=== PATIENT | female | born 1995 | race Caucasian/White ===

== ENCOUNTER 2020-06-08 19:55 | Emergency (ER) | payer MEDICAID ==
[~2020-06-08] VITALS: Ht 157.5 cm; Wt 61.1 kg
--- NOTE | 2020-06-08 20:19 | NUR ---
ERP AT BS.
[2020-06-08] MEDS ORDERED: MUPIROCIN OINT 2%, 22GM TP ONE (20:30)
[2020-06-08 20:52] LABS: HCG UR SG 1.025 (1.003-1.030); MICROSCOPIC AUTO
[2020-06-08] MEDS ORDERED: FLUCONAZOLE 100 MG TABLET ONE (21:15)
[2020-06-08] MEDS ORDERED: CEFDINIR 300 MG CAPSULE ONE (21:15)
[2020-06-08 21:28] VITALS: BP 113/66
[2020-06-08] MEDS ORDERED: CEFDINIR 300 MG CAPSULE PO ONE (21:30)
[2020-06-08] MEDS ORDERED: FLUCONAZOLE 100 MG TABLET PO ONE (21:30)
== END 2020-06-08 21:23 | disposition home or self-care (01) ==
LOC: ED 21:00
DX: N10 Acute pyelonephritis (principal); B37.3 Candidiasis of vulva and vagina; M54.5 Low back pain
CPT/HCPCS: 81001; 81025; 87086; 99283; 99285

== ENCOUNTER 2020-08-07 19:09 | Emergency (ER) | payer MEDICAID ==
[~2020-08-07] VITALS: Ht 157.5 cm; Wt 58.2 kg
--- NOTE | 2020-08-07 19:15 | NUR ---
patient ambulated to room with steady gait. redness visualized in back of mouth with c/o sore throat. in NAD. will continue to monitor. call mccullough in reach.
[2020-08-07] MEDS ORDERED: BUPR1FIL3 PO (19:40)
--- NOTE | 2020-08-07 21:05 | NUR ---
discharge instruction reviewed with patient. No further questions other than asking for a work note. in NAD. patient eager to leave hospital. Registration requested patient stay in room so they could finish registration process. patient was asked to wait in room for registration to complete their info and patient waited in door way and left ER. registration was notified again. all personal belongings with patient. steady gait on ambulation to lobby
[2020-08-07 21:25] VITALS: BP 108/65
== END 2020-08-07 21:28 | disposition home or self-care (01) ==
LOC: ED 19:39
DX: B34.9 Viral infection, unspecified (principal); Z20.822 Contact with and (suspected) exposure to COVID-19; M79.10 Myalgia, unspecified site; R50.9 Fever, unspecified; J02.9 Acute pharyngitis, unspecified; R09.81 Nasal congestion
CPT/HCPCS: 71045; 87635; 99284

== ENCOUNTER 2020-09-17 13:06 | Emergency (ER) | payer MEDICAID ==
[~2020-09-17] VITALS: Ht 157.5 cm; Wt 56.7 kg
[~2020-09-17 13:06] MED LIST: BUPR1FIL3 PO
--- NOTE | 2020-09-17 13:23 | NUR ---
CALLED FOR PT. PT NOT IN LOBBY
--- NOTE | 2020-09-17 13:29 | NUR ---
CALLED FOR PT. PT NOT IN LOBBY
[2020-09-17 14:39] LABS: BASOPHILS % (AUTO) 1 % (0-1); EOSINOPHILS % (AUTO) 1 % (1-7); LYMPHOCYTES % (AUTO) 35 % (22-44); MEAN CORPUSCULAR HEMOGLOBIN 28.2 pg (27.0-34.8); MEAN CORPUSCULAR HGB CONC 34.1 g/dL (32.4-35.8); MEAN PLATELET VOLUME 8.5 fL (7.4-10.4); MONOCYTES % (AUTO) 7 % (2-9); NEUTROPHILS % (AUTO) 57 % (42-75); PLATELET COUNT 306 x10^3/uL (130-400); RED BLOOD COUNT 4.84 x10^6/uL (3.82-5.3); RED CELL DISTRIBUTION WIDTH 13.5 % (9.6-15.2)
[2020-09-17 14:41] LABS: MD NO
[2020-09-17 14:46] LABS: MICROSCOPIC INDICATED
[2020-09-17 14:49] LABS: ALANINE AMINOTRANSFERASE 17 U/L (12-78); ALBUMIN 3.9 g/dL (3.4-5.0); ANION GAP 7 mmol/L (5-15); CALCIUM 8.8 mg/dL (8.5-10.1); CHLORIDE 107 mmol/L (98-107); CREATININE 0.82 mg/dL (0.55-1.02)
[2020-09-17 14:53] LABS: ALKALINE PHOSPHATASE 87 U/L (45-117); BILIRUBIN,TOTAL 0.5 mg/dL (0.2-1.0)
--- NOTE | 2020-09-17 15:12 | NUR ---
Pt to imaging.
[2020-09-17 16:38] VITALS: BP 93/56
== END 2020-09-17 16:40 | disposition home or self-care (01) ==
LOC: ED 16:30
DX: N30.00 Acute cystitis without hematuria (principal); N10 Acute pyelonephritis; M54.5 Low back pain
CPT/HCPCS: 36415; 74176; 80053; 81001; 84702; 85025; 87086; 99284

== ENCOUNTER 2021-01-22 19:27 | Emergency (ER) | payer MEDICAID ==
[~2021-01-22] VITALS: Ht 157.5 cm; Wt 52.3 kg
--- NOTE | 2021-01-22 20:08 | NUR ---
nurse auditor note: Pt to room from lobby.
[2021-01-22 20:21] VITALS: BP 103/73
== END 2021-01-22 21:27 | disposition home or self-care (01) ==
LOC: ED 20:45
DX: R05 Cough (principal); Z20.822 Contact with and (suspected) exposure to COVID-19; R43.9 Unspecified disturbances of smell and taste; R50.9 Fever, unspecified; F17.200 Nicotine dependence, unspecified, uncomplicated
CPT/HCPCS: 99283; U0003; U0005

== ENCOUNTER 2021-02-09 06:05 | Emergency (ER) | payer MEDICAID ==
[~2021-02-09] VITALS: Ht 157.5 cm; Wt 50.8 kg
[2021-02-09 06:10] VITALS: BP 127/86
--- NOTE | 2021-02-09 07:45 | NUR ---
Patient/Caregiver given discharge instructions and they have confirmed that they understand the instructions. Patient ambulatory with steady gait. NAD, all questions answered appropriately, denies additional needs at this time. No personal belongings left in room after discharge.
== END 2021-02-09 07:47 | disposition home or self-care (01) ==
LOC: ED 07:18
DX: F31.9 Bipolar disorder, unspecified (principal); Z76.0 Encounter for issue of repeat prescription; F17.200 Nicotine dependence, unspecified, uncomplicated
CPT/HCPCS: 99281

== ENCOUNTER 2021-02-26 14:54 | Emergency (ER) | payer MEDICAID ==
[~2021-02-26] VITALS: Ht 157.5 cm; Wt 48.0 kg
[2021-02-26 15:57] VITALS: BP 116/72
[2021-02-26] MEDS ORDERED: DEXAMETHASONE 4 MG/ML, 1ML PO ONE (17:00)
[2021-02-26] MEDS ORDERED: DEXAMETHASONE 4 MG/ML, 5ML ONE (17:01)
--- NOTE | 2021-02-26 17:55 | NUR ---
Patient given discharge instructions and they have confirmed that they understand the instructions. Patient ambulatory with steady gait.
== END 2021-02-26 17:58 | disposition home or self-care (01) ==
LOC: ED 17:00
DX: J02.8 Acute pharyngitis due to other specified organisms (principal); B97.89 Other viral agents as the cause of diseases classified elsewhere; R00.0 Tachycardia, unspecified; F17.200 Nicotine dependence, unspecified, uncomplicated
CPT/HCPCS: 87081; 87880; 99283; J1100; 87147